=== PATIENT | male | born 2000 | race Caucasian/White ===

== ENCOUNTER 2025-08-02 07:19 | Emergency (ER) | payer OTHER, SELFPAY ==
[2025-08-02 07:27] VITALS: BP 137/60; PULSE 59; RESP 20; TEMP 37; O2SAT 96; BMI 25.1
[2025-08-02 07:59] VITALS: PULSE 58; O2SAT 97
[2025-08-02 08:00] VITALS: BP 120/59; PULSE 62; O2SAT 97
[2025-08-02 08:30] VITALS: BP 115/61; PULSE 55; O2SAT 99
--- NOTE | 2025-08-02 08:37 | ED.WOUNDLAC ---
HPI - Wound/Laceration General Chief Complaint: Wound/Laceration Stated Complaint: Cut right index finger with pocket Knife Time Seen by Provider: 08/02/25 08:37 Mode of arrival: Ambulatory History of Present Illness HPI narrative: Patient 24-year-old male presenting to day with right index finger laceration over the PIP. He says it happened about 5:00 a.m. he is able to flex mostly but it hurts he has no numbness or tingling tetanus is up-to-date. Right-hand dominant. Related Data Allergies Allergy/AdvReac Type Severity Reaction Status Date / Time No Known Allergies Allergy Mild Verified 08/02/25 07:28 Patient History Social History Smoking Status: Never smoker Smoking Status: Never smoker Exam Initial Vital Signs Initial Vital Signs: Vital Signs Temperature 98.6 F 08/02/25 07:27 Pulse Rate 59 L 08/02/25 07:27 Respiratory Rate 20 08/02/25 07:27 Blood Pressure 137/60 08/02/25 07:27 Pulse Oximetry 96 08/02/25 07:27 Oxygen Delivery Method Room Air 08/02/25 07:27 GENERAL: Well-appearing, well-nourished and in no acute distress. CARDIOVASCULAR: peripheral pulses in tact, cap refill <2 sec RESPIRATORY: No respiratory distress, speaks in full sentences without difficulty EXTREMITIES: Normal range of motion, no clubbing or edema. Neurovascularly intact Right index pink finger 2cm laceration over PIP decreased flexion due to pain however he has full extension/flexion against resistance neurovascularly intact. NEUROLOGICAL: Cranial nerves II through XII grossly intact. Normal gait and speech. SKIN: Warm, dry, no petechiae, no rashes or lesions. Procedures Laceration Repair Laceration 1: Side (If applicable): right Size (cm): 2 Description: linear Depth: simple, single layer Local Anesthetic: lidocaine 1% Amount of anesthesia used (mL): 1.5 Pre-repair: wound explored, irrigated extensively and deep structures intact Skin layer closed with: nylon Skin layer suture size: 5-0 Number of sutures: 3 Course Vital Signs Vital signs: Vital Signs - 8 hr 08/02/25 07:27 08/02/25 07:59 08/02/25 08:00 Temperature 98.6 F Pulse Rate 59 L 58 L 62 Respiratory Rate 20 Blood Pressure 137/60 Pulse Oximetry 96 97 97 Oxygen Delivery Method Room Air 08/02/25 08:00 08/02/25 08:30 08/02/25 08:30 Temperature Pulse Rate 55 L Respiratory Rate Blood Pressure 120/59 L 115/61 Pulse Oximetry 99 Oxygen Delivery Method 08/02/25 09:12 Temperature 98.2 F Pulse Rate 68 Respiratory Rate 16 Blood Pressure 122/78 Pulse Oximetry 98 Oxygen Delivery Method Room Air MDM - Wound/Laceration MDM Narrative Medical decision making narrative: Patient 24-year-old male presents today with laceration to right index finger. It is on the dorsal side over the PIP joint. It does hurt to flex but he is able to do so he is also able to extend against resistance. Low suspicion for tendon injury. Does easily repaired with 3 sutures. He is given a finger splint and a bandage. Recommend follow up Discharge Plan Departure Patient Disposition: Home Clinical Impression: Laceration Instructions: DI for Laceration Repair Activity Restrictions/Additional Instructions: *You have been diagnosed with right index finger laceration *What to do: At this time have stitch removed in about 7 days. *Continue to take medications as directed Tylenol Motrin as needed for pain *Follow up with your primary care provider in 2-3 days or call [phone] Please call and follow-up with orthopedic in the next 1-2 days Have PCP remove stitches about 7 *Return to ER if you should have such as or any new, worsening or concerning symptoms Referrals: [facility] [Provider Group] ProviderElizabeth [Primary Care Provider, Family Practice] Stand Alone Forms: Patient Portal/API
[2025-08-02 09:12] VITALS: BP 122/78; PULSE 68; RESP 16; TEMP 36.8; O2SAT 98
== END 2025-08-02 09:13 | disposition home or self-care (01) ==
PROVIDERS: Emergency Provider Emergency Medicine
DX: S61.210A Laceration without foreign body of right index finger without damage to nail, initial encounter (principal); W26.0XXA Contact with knife, initial encounter
CPT/HCPCS: 12001; 99281; 99283